=== PATIENT | female | born 1965 | race Caucasian/White ===

== ENCOUNTER 2019-11-01 02:33 | Inpatient (IN) ==
[2019-11-01] MEDS ORDERED: IPRATROPIUM/ALBUTEROL 3 ML AMPUL.NEB NEB ONE ×2 (02:45→04:34)
[2019-11-01] MEDS ORDERED: cefTRIAXone 1 GM VIAL IV ONE (03:12)
[2019-11-01] MEDS ORDERED: LEVOFLOXACIN 750 MG/150 ML BAG IV ONE (03:12)
[2019-11-01 04:24] LABS: Basophils # (Auto) 0.04 K/mcL (0.00-0.30); Basophils % (Auto) 0.3 % (0.0-2.0); Eosinophils # (Auto) 0.13 K/mcL (0.00-0.70); Granulocytes % (Auto) 86.7 % (38.0-78.0); Hematocrit 35.6 % (34.1-44.9); Hemoglobin 11.4 g/dL (11.2-15.7); Lymphocytes # (Auto) 0.77 K/mcL (1.50-4.80); Lymphocytes % (Auto) 6.2 % (15.5-49.0); Mean Cell Volume 88.1 fL (80.0-100.0); Mean Platelet Volume 10.2 fL (7.4-10.4); Monocytes # (Auto) 0.72 K/mcL (0.10-0.90); Monocytes % (Auto) 5.8 % (1.0-12.0); Platelet Count 231 K/mcL (140-440); RBC 4.04 M/mcL (3.59-5.38); Red Cell Distribution Width 14.8 % (11.5-14.5); WBC 12.5 K/mcL (4.50-11.00)
[2019-11-01 04:46] LABS: ALT/SGPT 15 U/l (0-40); AST/SGOT 17 U/l (0-37); Albumin 3.7 gm/dL (3.2-5.2); Albumin/Globulin Ratio 1.1 (1.0-2.3); Alkaline Phosphatase 67 U/L (39-117); Bilirubin,Total 0.4 mg/dL (0.0-1.0); Blood Urea Nitrogen 15 mg/dl (6-20); Calcium 8.4 mg/dl (8.6-10.4); Carbon Dioxide 28 mmol/L (22-30); Chloride 99 mmol/L (96-108); Globulin 3.4 gm/dL (2.2-3.7); Glomerular Filtration Rate 84; Glucose 150 mg/dL (70-105)
--- NOTE | 2019-11-01 07:30 | Emergency Department Note ---
SOB HPI - General Chief Complaint: Shortness of Breath/Dyspnea Stated Complaint: wheezing shortness of breathe Time Seen by Provider: 11/01/19 03:11 Mode of arrival: ambulatory - History of Present Illness This patient has felt short of breath for the last week much worse at night. She has had some cough and does have a history of asthma. She initially was wheezing pretty heavily. - Related Data Home Medications Medication Instructions Recorded Confirmed metFORMIN [Glucophage] 500 mg PO [facility] 01/25/17 08/31/19 Aspirin [Davon Chewable Aspirin] 81 mg PO DAILY 12/14/17 08/31/19 Atorvastatin [Lipitor] 80 mg PO HS 12/14/17 08/31/19 Escitalopram [Lexapro] 10 mg PO DAILY 12/14/17 08/31/19 Metoprolol Tartrate [Lopressor] 25 mg PO BID 12/14/17 08/31/19 Omeprazole [PriLOSEC] 20 mg PO HS 12/14/17 08/31/19 losartan 100 1 tab PO QDAY 01/28/18 08/31/19 mg-hydrochlorothiazide 25 mg tablet cholecalciferol (vitamin D3) 50,000 unit PO .COMPLEX 06/17/18 08/31/19 50,000 unit capsule ticagrelor 60 mg tablet 60 mg PO BID 05/05/19 08/31/19 CPAP machine #1 ea 08/31/19 08/31/19 aripiprazole 2 mg tablet 2 mg PO QDAY 08/31/19 08/31/19 Previous Rx's Medication Instructions Recorded Furosemide [Lasix] 20 mg PO QDAY #30 tab 12/21/17 Potassium Chloride 10 meq PO BID #60 capsule.er 12/21/17 Cyclobenzaprine [Flexeril] 10 mg PO TID PRN #20 tab 10/07/18 albuterol sulfate 90 mcg/actuation 2 puff INHALATION Q6H PRN #18 g 07/22/19 aerosol inhaler HYDROcodone/APAP 5/325MG [[place] 1 tab PO Q6HP PRN #10 tab 08/01/19 5-325Mg] Ondansetron [Zofran ODT] 4 mg SL Q4-6HP PRN #10 tab 08/01/19 Allergies Allergy/AdvReac Type Severity Reaction Status Date / Time lisinopril Allergy Unknown Critical Verified 08/31/19 15:33 Review of Systems All systems ED: reviewed and negative except as stated. Past Medical History - Past Medical History [facility] Narrative: Medical History (Last Reviewed 08/31/19 @ 16:03 by IVETTE Farr) History of ST elevation myocardial infarction (STEMI) (Chronic) MONICA (obstructive sleep apnea) (Chronic) COPD (chronic obstructive pulmonary disease) (Chronic) Weight loss (Chronic) Acute sinusitis (Chronic) History of night sweats (Chronic) ST elevation (STEMI) myocardial infarction (Chronic) Vitamin D deficiency (Chronic) Gallstone (Chronic) Fatigue (Chronic) Irregular heart beat (Chronic) Chest pain (Chronic) Acute ST elevation myocardial infarction (Chronic) Systolic and diastolic hypertension (Chronic) Rhinosinusitis (Chronic) Acute coronary syndrome (Chronic) Smell or taste sensation disturbance (Chronic) Morbid obesity (Chronic) Cardiac murmur (Chronic) Pedal edema (Chronic) 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) Hypertension (Chronic) Bronchitis (Chronic) Myocardial infarction (Chronic) Anxiety (Chronic) Bronchospasm (Chronic) COPD exacerbation (Chronic) Abnormal blood-gas level (Chronic) Sleep apnea (Chronic) SOB (shortness of breath) (Chronic) Past Surgical History (Last Reviewed 08/31/19 @ 16:03 by IVETTE Farr) History of bilateral tubal ligation (Chronic ~1994) History of percutaneous coronary intervention (Chronic) History of (Chronic) History of facial surgery (Chronic ~1994) Family History (Last Reviewed 08/31/19 @ 16:03 by IVETTE Farr) Family/Other Cancer Grandmother Heart disease Grandfather Heart disease Son Hypertension Medical history: Reports: asthma, CAD (coronary artery disease), CHF, DM, hypertension, myocardial infarction Surgical history ED: Reports: angioplasty/stent - Social History smoking status: Former smoker Alcohol use: Reports: None Drug use: Reports: none Physical Exam Limitations: no limitations General appearance: alert Head: atraumatic Eye: Present: normal appearance ENT: Present: normal exam Neck: Present: normal inspection Chest: Present: normal inspection Respiratory: Present: rales/crackles, wheezes Cardiovascular: Present: regular rate, normal rhythm, normal heart sounds Abdominal: Present: soft. Absent: distention, tenderness Neurological: Present: alert Psychiatric: Present: normal affect Skin: Present: warm, dry Course Vital Signs Temperature 100.3 F H 11/01/19 02:34 Pulse Rate 102 H 11/01/19 02:34 Respiratory Rate 24 H 11/01/19 02:34 Pulse Oximetry (%) 87 L 11/01/19 02:34 Temperature 100.3 F H 11/01/19 02:34 Pulse Rate 96 H 11/01/19 06:28 Respiratory Rate 24 H 11/01/19 02:34 Blood Pressure 126/65 11/01/19 06:16 Pulse Oximetry (%) 91 11/01/19 06:28 Shortness of Breath/Dyspnea - [facility] Narrative Medical decision making narrative: Patient's chest x-ray was read as showing heart failure with superimposed right lower lobe pneumonia. Patient feels sick enough to want to be admitted to the hospital. I have treated her with Levaquin and Rocephin. Have not started diuresis yet. Have spoken with the hospitalist Dr. Curry and he will admit her observation. - Lab Data Lab results reviewed: Yes I reviewed the patient's lab results. Result diagrams: 11/01/19 03:24 11/01/19 03:24 Lab Results 11/01/19 11/01/19 11/01/19 Range/Units 03:24 03:24 03:24 WBC 12.5 H (4.50-11.00) K/mcL RBC 4.04 (3.59-5.38) M/mcL Hgb 11.4 (11.2-15.7) g/dL Hct 35.6 (34.1-44.9) % MCV 88.1 (80.0-100.0) fL MCH 28.2 (26.0-34.0) pg MCHC 32.0 (31.0-36.0) g/dL RDW 14.8 H (11.5-14.5) % Plt Count 231 (140-440) K/mcL MPV 10.2 (7.4-10.4) fL Gran % 86.7 H (38.0-78.0) % Lymph % (Auto) 6.2 L (15.5-49.0) % [place] % (Auto) 5.8 (1.0-12.0) % Eos % (Auto) 1.0 (0.0-7.0) % Baso % (Auto) 0.3 (0.0-2.0) % Gran # 10.79 H (1.80-8.00) K/mcL Lymph # (Auto) 0.77 L (1.50-4.80) K/mcL [place] # (Auto) 0.72 (0.10-0.90) K/mcL Eos # (Auto) 0.13 (0.00-0.70) K/mcL Baso # (Auto) 0.04 (0.00-0.30) K/mcL VBG Lactic Acid 1.2 (0.5-2.0) mmol/L Sodium 139 (133-145) mmol/L Potassium 3.4 (3.3-5.1) mmol/L Chloride 99 (96-108) mmol/L Carbon Dioxide 28 (22-30) mmol/L Anion Gap 12.0 (8-16) BUN 15 (6-20) mg/dl Creatinine 0.8 (0.6-1.1) mg/dl GFR Calculation 84 Glucose 150 H (70-105) mg/dL Calcium 8.4 L (8.6-10.4) mg/dl Total Bilirubin 0.4 (0.0-1.0) mg/dL AST 17 (0-37) U/l ALT 15 (0-40) U/l Alkaline Phosphatase 67 (39-117) U/L Troponin T (0-0.03) ng/ml NT-Pro-B Natriuret Pep 1733.0 H (0-125) pg/ml Total Protein 7.1 (5.9-8.4) gm/dL Albumin 3.7 (3.2-5.2) gm/dL Globulin 3.4 (2.2-3.7) gm/dL Albumin/Globulin Ratio 1.1 (1.0-2.3) 11/01/19 Range/Units 03:24 WBC (4.50-11.00) K/mcL RBC (3.59-5.38) M/mcL Hgb (11.2-15.7) g/dL Hct (34.1-44.9) % MCV (80.0-100.0) fL MCH (26.0-34.0) pg MCHC (31.0-36.0) g/dL RDW (11.5-14.5) % Plt Count (140-440) K/mcL MPV (7.4-10.4) fL Gran % (38.0-78.0) % Lymph % (Auto) (15.5-49.0) % [place] % (Auto) (1.0-12.0) % Eos % (Auto) (0.0-7.0) % Baso % (Auto) (0.0-2.0) % Gran # (1.80-8.00) K/mcL Lymph # (Auto) (1.50-4.80) K/mcL [place] # (Auto) (0.10-0.90) K/mcL Eos # (Auto) (0.00-0.70) K/mcL Baso # (Auto) (0.00-0.30) K/mcL VBG Lactic Acid (0.5-2.0) mmol/L Sodium (133-145) mmol/L Potassium (3.3-5.1) mmol/L Chloride (96-108) mmol/L Carbon Dioxide (22-30) mmol/L Anion Gap (8-16) BUN (6-20) mg/dl Creatinine (0.6-1.1) mg/dl GFR Calculation Glucose (70-105) mg/dL Calcium (8.6-10.4) mg/dl Total Bilirubin (0.0-1.0) mg/dL AST (0-37) U/l ALT (0-40) U/l Alkaline Phosphatase (39-117) U/L Troponin T < 0.01 (0-0.03) ng/ml NT-Pro-B Natriuret Pep (0-125) pg/ml Total Protein (5.9-8.4) gm/dL Albumin (3.2-5.2) gm/dL Globulin (2.2-3.7) gm/dL Albumin/Globulin Ratio (1.0-2.3) - Radiology Data Radiology results reviewed: Yes I reviewed the patient's radiology results. Disposition Pt seen by SENIOR TECHNICAL ARCHITECT/PA only: No Clinical Impression: Community acquired pneumonia, Congestive heart failure Disposition: Xfer As Outpt/Obs ([facility]) Condition: Good Referrals: Stolte,Iza R, ANIMAL CARE SERVICE WORKER [Primary Care Provider] - Time of Disposition: 08:51
--- NOTE | 2019-11-01 07:41 | XRay Report ---
CLINICAL INFORMATION: shortnessof breathe COMPARISON: 08/01/2019 FINDINGS: Moderate cardiomegaly is unchanged. Mediastinum is unremarkable. Pulmonary vessels are mildly distended and there is mild interstitial edema throughout both lungs. Moderate patchy right lower lobe infiltrate has developed. There are small bilateral pleural effusions. IMPRESSION: Moderate CHF Moderate right lower lobe infiltrate - likely superimposed pneumonia Interpreted and Authenticated by: Alejo Gamboa 11/01/19
--- NOTE | 2019-11-01 08:53 | Internal Med History&Physical ---
Medical - H&P: [facility] Patient information: Note initiated : 11/01/19 at 8:52 am Service Date, if different from initiated Date: [] Patient: Delmy Emery a 54 y/o F admitted on for wheezing shortness of breathe. Chief Complaint: [] Chief complaint: Shortness of breath, weight gain History of present illness: Ms. Emery is a 54 year old F morbidly obese with a known history of diabetes/hypertension who presents to ER with increasing weight gain/shortness of breath over the last few days. Patient has been taking 6-8 ibuprofen for degenerative joint disease. She also endorses a lack of appetite and lack of sleep. Her dyspnea is progressed from maximum exertion to dyspnea at rest. Dyspnea exacerbated by laying down. She denies [id number] medications or sick contacts. She presents to the ER with above symptoms. Notably patient has a history of CHF and follows up with Dr. rubi [place] cardiology. She has an echocardiogram done middle of 2018 and was following up with [place] Dr. Osborn. Initial work-up was consistent with CHF exacerbation/basilar pneumonia. Patient was started on antibiotic coverage subsequently hospitalist service was consulted At the time of evaluation patient is accompanied with her son. She was able to answer most the question and endorsed to history as above. She denies associated fever, diarrhea, abdominal pain, headache, photophobia. She denies productive sputum. Review of systems A 10 point review of system was performed and is negative except for discussed above Medical - H&P: PMH Medical history: History of ST elevation myocardial infarction (STEMI) (Chronic) MONICA (obstructive sleep apnea) (Chronic) COPD (chronic obstructive pulmonary disease) (Chronic) Weight loss (Chronic) Acute sinusitis (Chronic) History of night sweats (Chronic) ST elevation (STEMI) myocardial infarction (Chronic) Vitamin D deficiency (Chronic) Gallstone (Chronic) Fatigue (Chronic) Irregular heart beat (Chronic) Chest pain (Chronic) consistent with unstable angina Acute ST elevation myocardial infarction (Chronic) Systolic and diastolic hypertension (Chronic) Rhinosinusitis (Chronic) Acute coronary syndrome (Chronic) NSTEMI Smell or taste sensation disturbance (Chronic) Morbid obesity (Chronic) Cardiac murmur (Chronic) Pedal edema (Chronic) 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) Hypertension (Chronic) Bronchitis (Chronic) bilateral Myocardial infarction (Chronic) Anxiety (Chronic) Bronchospasm (Chronic) COPD exacerbation (Chronic) Abnormal blood-gas level (Chronic) Sleep apnea (Chronic) SOB (shortness of breath) (Chronic) Surgical History History of bilateral tubal ligation (Chronic ~1994) History of percutaneous coronary intervention (Chronic) 2 stents placed History of (Chronic) 1994; 1992; 1985 History of facial surgery (Chronic ~1994) 1994 facial cyst removed with reconstruction Family History Family/Other Cancer Uncle Grandmother Heart disease Grandfather Heart disease Son Hypertension Social History marital status: single occupational status: employed physical activity: swimming frequency: daily smoking status: Former smoker quit date: 10/14/04 pack-years: 33 alcohol intake frequency: holiday/special occasion only substance use type: does not use Medical - H&P: Meds Home Medications Medication Instructions Recorded Confirmed Type Aspirin [Davon Chewable Aspirin] 81 mg PO DAILY 12/14/17 11/01/19 History Atorvastatin [Lipitor] 80 mg PO HS 12/14/17 11/01/19 History Metoprolol Tartrate [Lopressor] 25 mg PO BID 12/14/17 11/01/19 History Omeprazole [PriLOSEC] 20 mg PO HS 12/14/17 11/01/19 History Potassium Chloride 10 meq PO BID #60 capsule.er 12/21/17 11/01/19 Rx cholecalciferol (vitamin D3) 50,000 unit PO WEEKLY 06/17/18 11/01/19 History 50,000 unit capsule CPAP machine 1 each .ROUTE .MEDSUPPLY #1 ea 08/31/19 11/01/19 History aripiprazole 2 mg tablet 2 mg PO QDAY 08/31/19 11/01/19 History Furosemide [Lasix] 40 mg PO BID 11/01/19 11/01/19 History Losartan [Cozaar] 25 mg PO DAILY 11/01/19 11/01/19 History Ticagrelor [Brilinta] 90 mg PO BID 11/01/19 11/01/19 History metFORMIN [Glucophage] 500 mg PO DAILY 11/01/19 11/01/19 History Allergies Allergy/AdvReac Type Severity Reaction Status Date / Time clopidogrel [From Plavix] Allergy Mild Rash Verified 11/01/19 15:31 lisinopril AdvReac Mild Cough Verified 11/01/19 15:31 Medical - H&P: Exam - Constitutional Vitals: Temp Pulse Resp BP Pulse Ox 100.3 F H 96 H 24 H 126/65 91 11/01/19 02:34 11/01/19 06:28 11/01/19 02:34 11/01/19 06:16 11/01/19 06:28 General appearance: morbidly obese Exam: Head normocephalic Oral cavity dry No ear nose discharge Eye movement symmetrical Neck lymphadenopathy S1-S2 regular rhythm ESM grade 1 Diminished breath sounds bases Pendulous distended abdomen Lower extremity pitting edema from knee to the ankle No joint swelling erythema Skin no suspicious lesion Psych alert cooperative Neuro nonfocal Medical - H&P: Reslt - Labs CBC & Chem 7: 11/02/19 04:49 11/02/19 04:49 Labs: Short CBC 11/01/19 Range/Units 03:24 WBC 12.5 H (4.50-11.00) K/mcL Hgb 11.4 (11.2-15.7) g/dL Hct 35.6 (34.1-44.9) % Plt Count 231 (140-440) K/mcL BMP 11/01/19 03:24 Sodium 139 Potassium 3.4 Chloride 99 Carbon Dioxide 28 BUN 15 Creatinine 0.8 Glucose 150 H Calcium 8.4 L Cardiac Enzymes 11/01/19 Range/Units 03:24 Troponin T < 0.01 (0-0.03) ng/ml Liver Function 11/01/19 Range/Units 03:24 Total Bilirubin 0.4 (0.0-1.0) mg/dL AST 17 (0-37) U/l ALT 15 (0-40) U/l Alkaline Phosphatase 67 (39-117) U/L Albumin 3.7 (3.2-5.2) gm/dL Medical - H&P: A/P (1) Heart failure with acute decompensation, type unknown Current visit: Yes Status: Acute * Acute decompensated heart failure-type unknown. Await echocardiogram from [place]. Recheck echocardiogram/diuresis/repeat chest imaging. PT OT. Start beta-ivy/MIGUEL inhibitor. * Basilar pneumonia continue antibiotic coverage. Community-acquired versus aspiration * Dyspnea secondary above continue diuresis/pulmonary toilet/supplemental oxygen * DM type II continue basal prandial insulin * Obstructive sleep apnea * Hyperlipidemia continue statin * CAD continue Brilinta/statin/aspirin * Full code * Prophylaxis heparin Plan * Start antibiotic coverage * Diuresis * Echocardiogram * CHF management based on echo finding * Pre-existing well condition management on home meds * PT OT/nutrition support * Discharge planning
[2019-11-01] MEDS ORDERED: ATORVASTATIN 40 MG TABLET PO ONE (10:15)
[2019-11-01] MEDS ORDERED: metFORMIN 500 MG TAB.XL.24H PO ONE (10:22)
[2019-11-01] MEDS ORDERED: OMEPRAZOLE 20 MG CAPSULE PO ONE (10:24)
[2019-11-01] MEDS ORDERED: FUROSEMIDE 40 MG TABLET PO ONE (10:25)
[2019-11-01] MEDS ORDERED: ASPIRIN 81 MG TAB.CHEW CHEWED ONE (10:26)
[2019-11-01] MEDS ORDERED: POTASSIUM CHLORIDE 10 MEQ TABLET PO ONE (10:26)
[2019-11-01] MEDS ORDERED: METOPROLOL SUCCINATE 25 MG TAB.XL.24H PO ONE (10:27)
[2019-11-01] MEDS ORDERED: LOSARTAN 25 MG TABLET PO ONE (10:27)
[2019-11-01] MEDS ORDERED: ESCITALOPRAM 20 MG TABLET PO SCH (10:39)
[2019-11-01] MEDS ORDERED: ESCITALOPRAM 20 MG TABLET PO ONE (11:19)
[2019-11-01] MEDS ORDERED: ONDANSETRON 4 MG/2 ML VIAL IV PRN (13:51)
[2019-11-01] MEDS ORDERED: ONDANSETRON 4 MG ODT TABLET SL PRN (13:51)
[2019-11-01] MEDS ORDERED: cefTRIAXone 2 GM in DEXTROSE 5% IN WATER 50 ML IV SCH (13:51)
[2019-11-01] MEDS ORDERED: DEXTROSE 31 GM ORAL.SUSP PO PRN (13:51)
[2019-11-01] MEDS ORDERED: DEXTROSE 50% 50 ML VIAL IV PRN (13:51)
[2019-11-01] MEDS ORDERED: POTASSIUM CHLORIDE 20 MEQ PACKET PO PRN (13:51)
[2019-11-01] MEDS ORDERED: MELATONIN 3 MG TABLET PO PRN (13:51)
[2019-11-01] MEDS ORDERED: POLYETHYLENE GLYCOL 3350 17 GM PACKET PO PRN (13:51)
[2019-11-01] MEDS ORDERED: ACETAMINOPHEN 650 MG/65 ML BOTTLE IV PRN (13:51)
[2019-11-01] MEDS ORDERED: MAGNESIUM SULFATE 2 GM/50 ML BAG IV PRN (13:51)
[2019-11-01] MEDS ORDERED: ACETAMINOPHEN 325 MG TABLET PO PRN (13:51)
[2019-11-01] MEDS: INSULIN LISPRO 1 UNIT/0.01 ML UNIT SQ SCH ×3 (13:51→21:08)
[2019-11-01] MEDS ORDERED: BISACODYL 10 MG SUPP.RECT PR PRN (13:51)
[2019-11-01] MEDS ORDERED: LEVOFLOXACIN 750 MG/150 ML BAG IV SCH (13:51)
[2019-11-01] MEDS: DOCUSATE SODIUM 100 MG CAPSULE PO SCH ×2 (13:57→21:08)
[2019-11-01] MEDS: IPRATROPIUM/ALBUTEROL 3 ML AMPUL.NEB NEB SCH ×3 (14:19→19:10)
[2019-11-01] MEDS: FUROSEMIDE 40 MG/4 ML VIAL IV SCH (15:51)
[2019-11-01] MEDS: MULTIVIT,THER IRON,CA,FA & MIN 1 TABLET PO SCH (15:52)
[2019-11-01] MEDS: sitaGLIPtin 100 MG TABLET PO SCH (15:52)
[2019-11-01] MEDS: HEPARIN 5,000 UNIT/ML VIAL SQ SCH ×2 (15:52→21:08)
[2019-11-01] MEDS: THIAMINE 100 MG TABLET PO SCH (15:52)
[2019-11-01] MEDS: 0.9 % SODIUM CHLORIDE 10 ML SYRINGE IV SCH ×2 (15:53→21:08)
[2019-11-01] MEDS: BUDESONIDE 0.5 MG/2 ML AMPUL.NEB NEB SCH ×2 (15:56→19:10)
[2019-11-01] MEDS: SENNOSIDES/DOCUSATE SODIUM 1 TAB TABLET PO SCH (21:08)
[2019-11-02] MEDS: IPRATROPIUM/ALBUTEROL 3 ML AMPUL.NEB NEB SCH ×7 (00:34→23:05)
[2019-11-02] MEDS: 0.9 % SODIUM CHLORIDE 10 ML SYRINGE IV SCH ×3 (06:00→20:54)
[2019-11-02 06:58] LABS: Hematocrit 33.2 % (34.1-44.9); Hemoglobin 10.7 g/dL (11.2-15.7); Mean Cell Volume 87.8 fL (80.0-100.0); Mean Corpuscular HGB Conc 32.2 g/dL (31.0-36.0); Mean Platelet Volume 10.3 fL (7.4-10.4); Platelet Count 215 K/mcL (140-440); RBC 3.78 M/mcL (3.59-5.38); Red Cell Distribution Width 15.2 % (11.5-14.5)
[2019-11-02] MEDS: BUDESONIDE 0.5 MG/2 ML AMPUL.NEB NEB SCH ×2 (07:22→19:00)
[2019-11-02] MEDS: INSULIN LISPRO 1 UNIT/0.01 ML UNIT SQ SCH ×4 (07:30→20:53)
[2019-11-02 07:34] LABS: ALT/SGPT 12 U/l (0-40); AST/SGOT 14 U/l (0-37); Albumin 3.4 gm/dL (3.2-5.2); Albumin/Globulin Ratio 1.1 (1.0-2.3); Alkaline Phosphatase 62 U/L (39-117); Bilirubin,Direct < 0.2 mg/dL (0.0-0.3); Bilirubin,Total 0.8 mg/dL (0.0-1.0); Blood Urea Nitrogen 15 mg/dl (6-20); Carbon Dioxide 27 mmol/L (22-30); Chloride 99 mmol/L (96-108); Globulin 3.2 gm/dL (2.2-3.7); Glomerular Filtration Rate 84; Glucose 132 mg/dL (70-105); Lactate Dehydrogenase 208 U/L (94-250); Phosphorous 3.9 mg/dL (2.7-4.5); Triglycerides 62 mg/dl (<150); Uric Acid 5.5 mg/dL (2.5-8.0)
[2019-11-02 08:12] LABS: Band Neutrophils % 4 % (0-10); Basophils % (Manual) 1 % (0-2); Eosinophils % (Manual) 2 % (0-7); Lymphocytes % 9 % (15-49); Monocytes % (Manual) 5 % (1-12); Platelet Estimate NORMAL (NORMAL); RBC Morphology NORMAL (NORMAL); Reactive Lymphocytes 1 % (0-2); Segmented Neutrophils % 78 % (38-78)
[2019-11-02] MEDS ORDERED: POTASSIUM CHLORIDE 20 MEQ TABLET PO ONE (08:52)
[2019-11-02] MEDS ORDERED: ESCITALOPRAM 20 MG TABLET PO SCH (09:00)
[2019-11-02] MEDS: Ticagrelor [Brilinta] 90 mg Tab PO SCH ×2 (09:00→20:54)
[2019-11-02] MEDS: LEVOFLOXACIN 750 MG/150 ML BAG IV SCH (09:22)
[2019-11-02] MEDS: cefTRIAXone 2 GM in DEXTROSE 5% IN WATER 50 ML IV SCH (09:22)
[2019-11-02] MEDS: DOCUSATE SODIUM 100 MG CAPSULE PO SCH ×2 (09:23→20:53)
[2019-11-02] MEDS: MULTIVIT,THER IRON,CA,FA & MIN 1 TABLET PO SCH (09:23)
[2019-11-02] MEDS: HEPARIN 5,000 UNIT/ML VIAL SQ SCH ×2 (09:23→20:53)
[2019-11-02] MEDS: FUROSEMIDE 40 MG/4 ML VIAL IV SCH ×2 (09:23→17:48)
[2019-11-02] MEDS: THIAMINE 100 MG TABLET PO SCH (09:23)
[2019-11-02] MEDS ORDERED: CPAP MACHINE SCH (09:30)
[2019-11-02] MEDS: sitaGLIPtin 100 MG TABLET PO SCH (09:32)
[2019-11-02] MEDS ORDERED: metFORMIN 500 MG TAB.XL.24H PO ONE (10:22)
[2019-11-02] MEDS ORDERED: OMEPRAZOLE 20 MG CAPSULE PO ONE (10:24)
--- NOTE | 2019-11-02 10:46 | Internal Med Progress Note ---
Medical - PN: Subj Patient information: Note initiated : 11/02/19 at 10:42 am Service Date, if different from initiated Date: [] Patient: Delmy Emery a 54 y/o F admitted on 11/01/19 for wheezing shortness of breathe. Chief Complaint: [] Interval history: Ms. Emery is a 54 year old F morbidly obese with a known history of diabetes/hypertension who presents to ER with increasing weight gain/shortness of breath over the last few days. Patient has been taking 6-8 ibuprofen for degenerative joint disease. She also endorses a lack of appetite and lack of sleep. Her dyspnea is progressed from maximum exertion to dyspnea at rest. Dyspnea exacerbated by laying down. She denies grxm-zlm-obhrsel medications or sick contacts. She presents to the ER with above symptoms. Notably patient has a history of CHF and follows up with Dr. rubi [place] cardiology. She has an echocardiogram done middle of 2018 and was following up with [place] Dr. Osborn. Initial work-up was consistent with CHF exacerbation/basilar pneumonia. Patient was started on antibiotic coverage subsequently hospitalist service was consulted At the time of evaluation patient is accompanied with her son. She was able to answer most the question and endorsed to history as above. She denies associated fever, diarrhea, abdominal pain, headache, photophobia. She denies productive sputum. 11/02-patient doing well. No overnight events. No concerns per staff. No fever chills nausea vomiting. Diuresing well. On room air. No telemetry events. T-max 100.3. Continue PT OT/nutrition support - Constitutional Vitals: Vital Signs Temp Pulse Resp BP Pulse Ox 98.0 F 80 16 144/75 95 11/02/19 08:37 11/02/19 07:29 11/02/19 07:29 11/02/19 08:37 11/02/19 08:37 Period Temp Pulse Resp BP Sys/Blackwell Pulse Ox Last 24 Hr 97.0 F-98.4 F 70-94 14-26 103-147/38-79 91-100 Intake and Output 11/01/19 11/02/19 11/02/19 21:59 05:59 13:59 Intake Total 360 Output Total 1900 850 Balance -1900 -490 Weight 441 lb Intake & Output: Intake & Output 11/01/19 11/02/19 11/02/19 21:59 05:59 13:59 Intake Total 360 Output Total 1900 850 Balance -1900 -490 Weight 441 lb Intake: Oral 360 Output: Urine Catheter Amount 400 Void Amount 1500 850 # of times incontinent of urine 0 Other: Meal Breakfast Percent of Meal Consumed 100% Feeding Ability Independent Urine Appearance Clear Clear Urine Color Pale Pale Urine Odor Strong # Voids 1 1 # Bowel Movements 1 General appearance: no acute distress Exam: Alert oriented Nonlabored breathing Nondistended abdomen Improved lymphedema No telemetry events Medical - PN: Obj Da - Labs CBC & Chem 7: 11/02/19 04:49 11/02/19 04:49 Labs: Abnormal Lab Results 11/02/19 11/02/19 11/01/19 04:49 04:49 03:24 WBC Hgb 10.7 L Hct 33.2 L RDW 15.2 H Gran % Lymph % (Auto) Gran # Lymph # (Auto) Lymphocytes % 9 L Glucose 132 H 150 H Calcium 8.4 L NT-Pro-B Natriuret Pep 1733.0 H 11/01/19 03:24 WBC 12.5 H Hgb Hct RDW 14.8 H Gran % 86.7 H Lymph % (Auto) 6.2 L Gran # 10.79 H Lymph # (Auto) 0.77 L Lymphocytes % Glucose Calcium NT-Pro-B Natriuret Pep Meds: Medications Acetaminophen (Tylenol) 650 mg PO Q4-6HP PRN; Protocol PRN Reason: Per Pain Protocol/Fever > 101 Albuterol/Ipratropium (Duoneb) 3 ml NEB Q4HRT [facility] Last Admin: 11/02/19 07:22 Dose: 3 ml Documented by: Aspirin (Aspirin) 81 mg PO DAILY [facility] Atorvastatin Calcium (Lipitor) 80 mg PO HS [facility] Bisacodyl (Dulcolax) 10 mg MI Q2-3DAYS PRN PRN Reason: Constipation Budesonide (Pulmicort) 0.5 mg NEB Q12 [facility] Last Admin: 11/02/19 07:22 Dose: 0.5 mg Documented by: Dextrose (Dextrose 50%) 0 ml IV UD PRN PRN Reason: Hypoglycemia Diagnostic Test (Pha) (Accu-Chek) 1 each FS ACHS [facility] Last Admin: 11/02/19 07:30 Dose: 1 each Documented by: Docusate Sodium (Colace) 100 mg PO BID [facility] Last Admin: 11/02/19 09:23 Dose: Not Given Documented by: Furosemide (Lasix) 40 mg IV BIDD [facility] Last Admin: 11/02/19 09:23 Dose: 40 mg Documented by: Glucose (Insta-Glucose) 15 gm PO PRN PRN PRN Reason: Hypoglycemia Heparin Sodium (Porcine) (Heparin) 5,000 unit SQ Q12 [facility] Last Admin: 11/02/19 09:23 Dose: 5,000 unit Documented by: Acetaminophen (Ofirmev) 650 mg in 65 mls @ 130 mls/hr IV Q6HP PRN; Protocol PRN Reason: Per Pain Protocol/Fever > 101 Magnesium Sulfate (Magnesium Sulfate) 2 gm in 50 mls @ 50 mls/hr IV UD PRN PRN Reason: MG = or < 1.7 Levofloxacin (Levaquin) 750 mg in 150 mls @ 100 mls/hr IV Q24H [facility]; Protocol Last Admin: 11/02/19 09:22 Dose: 100 mls/hr Documented by: Ceftriaxone Sodium 2 gm/ (Dextrose) 50 mls @ 100 mls/hr IV Q24H [facility]; Protocol Last Admin: 11/02/19 09:22 Dose: 100 mls/hr Documented by: Insulin Human Lispro (Humalog) 0 unit SQ ACHS [facility]; Protocol Last Admin: 11/02/19 07:30 Dose: Not Given Documented by: Iron Carb/Multivit/[place]/Folic Acid (Multivitamin W/Minerals) 1 tab PO DAILY [facility] Last Admin: 11/02/19 09:23 Dose: 1 tab Documented by: Losartan Potassium (Cozaar) 25 mg PO DAILY [facility] Melatonin (Melatonin 3mg Tablet) 3 mg PO HSP PRN PRN Reason: Insomnia [facility]) [facility] Metoprolol Tartrate (Lopressor) 25 mg PO BID [facility] Omeprazole (Prilosec) 20 mg PO HS [facility] Ondansetron HCl (Zofran Odt) 4 mg SL Q4-6HP PRN; Protocol PRN Reason: Nausea And Vomiting Ondansetron HCl (Zofran) 4 mg IV Q4-6HP PRN; Protocol PRN Reason: Nausea And Vomiting Aripiprazole [ (Abilify] 2 Mg Tab) 1 dose PO QDAY [facility] Ticagrelor [Brilinta (] 90 Mg Tab) 1 dose PO BID [facility] Polyethylene Glycol (Miralax) 17 gm PO DAILYP PRN PRN Reason: Constipation Potassium Chloride (Klor-Con) 40 meq PO DAILYP PRN PRN Reason: K+ < 3.5 Last Admin: 11/01/19 17:19 Dose: 40 meq Documented by: Potassium Chloride (Kdur) 10 meq PO BIDCC [facility] Senna/Docusate Sodium (Senna Plus Tablet) 1 tab PO HS [facility] Last Admin: 11/01/19 21:08 Dose: Not Given Documented by: Sitagliptin Phosphate (Januvia) 100 mg PO DAILY [facility] Last Admin: 11/02/19 09:32 Dose: 100 mg Documented by: Sodium Chloride (Saline Flush) 10 ml IV Q8 [facility] Last Admin: 11/02/19 06:00 Dose: 10 ml Documented by: Thiamine HCl (Vitamin B1) 100 mg PO DAILY [facility] Last Admin: 11/02/19 09:23 Dose: 100 mg Documented by: Medical - PN: A/P - Time Spent With Patient Total time spent is greater than 50% in coordination of care (as documented) at patient's floor/unit and/or counseling patient: 25 - 35 minutes (1) Heart failure with acute decompensation, type unknown Status: Acute Assessment and plan: * Acute decompensated heart failure-diastolic from echo 2019. Await repeat echo. Continue diuresis. Continue beta-ivy/ARB. * History of CAD continue Brilinta/aspirin/statin/beta-ivy * Basilar pneumonia continue Levaquin for additional 6 days. Community-acquired versus aspiration * Dyspnea secondary above continue diuresis/pulmonary toilet/supplemental oxygen * DM type II continue CC diet/sliding scale insulin/metformin/sitagliptin, blood sugars at goal * Obstructive sleep apnea start home CPAP * Hyperlipidemia continue statin * Full code * Prophylaxis heparin Plan * Continue antibiotic coverage * Continue diuresis * Await echocardiogram * Prior medical condition management and home medications * PT OT/nutrition support * Discharge planning Current Visit: Yes Medical - PN: Qual - VTE Deep Vein Thrombosis/Pulmonary Embolism Present on Admission: No
[2019-11-02] MEDS: LOSARTAN 25 MG TABLET PO SCH (11:13)
[2019-11-02] MEDS: POTASSIUM CHLORIDE 10 MEQ TABLET PO SCH ×2 (11:13→17:48)
[2019-11-02] MEDS: metFORMIN 500 MG TABLET PO SCH (11:13)
[2019-11-02] MEDS: METOPROLOL TARTRATE 25 MG TABLET PO SCH ×2 (11:13→20:54)
[2019-11-02] MEDS ORDERED: ESCITALOPRAM 20 MG TABLET PO ONE (11:16)
[2019-11-02] MEDS: SENNOSIDES/DOCUSATE SODIUM 1 TAB TABLET PO SCH (20:54)
[2019-11-02] MEDS ORDERED: ATORVASTATIN 40 MG TABLET PO SCH (21:00)
[2019-11-02] MEDS ORDERED: OMEPRAZOLE 20 MG CAPSULE PO SCH (21:00)
[2019-11-03] MEDS: IPRATROPIUM/ALBUTEROL 3 ML AMPUL.NEB NEB SCH ×3 (03:51→11:26)
[2019-11-03] MEDS: 0.9 % SODIUM CHLORIDE 10 ML SYRINGE IV SCH (05:28)
[2019-11-03 06:44] LABS: Hematocrit 33.6 % (34.1-44.9); Hemoglobin 10.8 g/dL (11.2-15.7); Mean Cell Volume 87.5 fL (80.0-100.0); Mean Corpuscular HGB Conc 32.1 g/dL (31.0-36.0); Mean Platelet Volume 10.2 fL (7.4-10.4); Platelet Count 238 K/mcL (140-440); RBC 3.84 M/mcL (3.59-5.38); WBC 9.7 K/mcL (4.50-11.00)
[2019-11-03 07:09] LABS: ALT/SGPT 12 U/l (0-40); AST/SGOT 15 U/l (0-37); Albumin 3.5 gm/dL (3.2-5.2); Albumin/Globulin Ratio 1.1 (1.0-2.3); Alkaline Phosphatase 62 U/L (39-117); Bilirubin,Direct < 0.2 mg/dL (0.0-0.3); Bilirubin,Total 0.7 mg/dL (0.0-1.0); Blood Urea Nitrogen 15 mg/dl (6-20); Calcium 9.3 mg/dl (8.6-10.4); Carbon Dioxide 29 mmol/L (22-30); Chloride 97 mmol/L (96-108); Globulin 3.2 gm/dL (2.2-3.7); Glomerular Filtration Rate 73; Glucose 116 mg/dL (70-105); Lactate Dehydrogenase 195 U/L (94-250); Phosphorous 4.3 mg/dL (2.7-4.5); Triglycerides 70 mg/dl (<150); Uric Acid 5.5 mg/dL (2.5-8.0)
[2019-11-03] MEDS: BUDESONIDE 0.5 MG/2 ML AMPUL.NEB NEB SCH (07:31)
[2019-11-03] MEDS: INSULIN LISPRO 1 UNIT/0.01 ML UNIT SQ SCH (07:33)
[2019-11-03] MEDS: METOPROLOL TARTRATE 25 MG TABLET PO SCH (08:30)
[2019-11-03] MEDS: metFORMIN 500 MG TABLET PO SCH (08:30)
[2019-11-03] MEDS: THIAMINE 100 MG TABLET PO SCH (08:30)
[2019-11-03] MEDS: sitaGLIPtin 100 MG TABLET PO SCH (08:30)
[2019-11-03] MEDS: MULTIVIT,THER IRON,CA,FA & MIN 1 TABLET PO SCH (08:30)
[2019-11-03] MEDS: FUROSEMIDE 40 MG/4 ML VIAL IV SCH (08:31)
[2019-11-03] MEDS: Ticagrelor [Brilinta] 90 mg Tab PO SCH (08:31)
[2019-11-03] MEDS: POTASSIUM CHLORIDE 10 MEQ TABLET PO SCH (08:31)
[2019-11-03] MEDS: HEPARIN 5,000 UNIT/ML VIAL SQ SCH (08:31)
[2019-11-03] MEDS: DOCUSATE SODIUM 100 MG CAPSULE PO SCH (08:31)
[2019-11-03] MEDS: LOSARTAN 25 MG TABLET PO SCH (08:31)
[2019-11-03] MEDS: cefTRIAXone 2 GM in DEXTROSE 5% IN WATER 50 ML IV SCH (08:31)
[2019-11-03] MEDS ORDERED: ASPIRIN 81 MG TAB.CHEW PO SCH (09:00)
[2019-11-03 09:16] LABS: Band Neutrophils % 1 % (0-10); Eosinophils % (Manual) 1 % (0-7); Lymphocytes % 20 % (15-49); Monocytes % (Manual) 9 % (1-12); Platelet Estimate NORMAL (NORMAL); Polychromasia FEW (NONE SEEN); RBC Morphology ABNORM (NORMAL); Segmented Neutrophils % 69 % (38-78)
--- NOTE | 2019-11-03 09:29 | Discharge Summary ---
Medical - DS: Prov Patient information: Note initiated : 11/03/19 at 9:26 am Service Date, if different from initiated Date: [] Patient: Delmy Emery 54 y/o F admitted on 11/01/19 for wheezing shortness of breathe. Chief Complaint: [] Date of admission: 11/01/19 13:50 Discharge date: 11/03/19 Primary care physician: Iza Jacobs Consults: 11/01/19 Consult to Physician [CONS] Stat Comment: Consulting Provider: Eran Mora Reason For Exam: Physician to Consult Medical - DS: Meds - Discharge Medications Prescriptions: Levofloxacin [Levaquin] 750 mg PO DAILY #5 tab Transmission Status: Pending to [facility] Active and Home Medications: Home Medications Aspirin [Davon Chewable Aspirin] 81 mg PO DAILY 12/14/17 [History Confirmed 11/01/19 Last Taken 11/01/19] Atorvastatin [Lipitor] 80 mg PO HS 12/14/17 [History Confirmed 11/01/19 Last Taken 11/01/19] Metoprolol Tartrate [Lopressor] 25 mg PO BID 12/14/17 [History Confirmed 11/01/19 Last Taken 11/01/19] Omeprazole [Prilosec] 20 mg PO HS 12/14/17 [History Confirmed 11/01/19 Last Taken 11/01/19] Potassium Chloride 10 meq PO BID #60 capsule.er 12/21/17 [Rx Confirmed 11/01/19 Last Taken 11/01/19] cholecalciferol (vitamin D3) 50,000 unit capsule 50,000 unit PO WEEKLY 06/17/18 [History Confirmed 11/01/19 Last Taken 10/28/19] CPAP machine 1 each .ROUTE .MEDSUPPLY #1 ea 08/31/19 [History Confirmed 11/01/19 Last Taken Unknown] aripiprazole 2 mg tablet 2 mg PO QDAY 08/31/19 [History Confirmed 11/01/19 Last Taken 10/31/19] Furosemide [Lasix] 40 mg PO BID 11/01/19 [History Confirmed 11/01/19 Last Taken 11/01/19] Losartan [Cozaar] 25 mg PO DAILY 11/01/19 [History Confirmed 11/01/19 Last Taken 11/01/19] Ticagrelor [Brilinta] 90 mg PO BID 11/01/19 [History Confirmed 11/01/19 Last Taken 10/31/19] metFORMIN [Glucophage] 500 mg PO DAILY 11/01/19 [History Confirmed 11/01/19 Last Taken 11/01/19] Levofloxacin [Levaquin] 750 mg PO DAILY #5 tab 11/03/19 [Rx Last Taken Unknown] Medical - DS: Hosp Hospital Course: Discharge diagnosis * Acute decompensated heart failure-diastolic from echo 2018 and repeat echo with preserved EF await repeat echo. Responded well to diuretics. Continue beta-ivy/ARB. * Basilar pneumonia clinically improved on antibiotic coverage. Continue Levaquin for additional 5 days. * Dyspnea secondary above resolved with aggressive diuresis/pulmonary toilet/supplemental oxygen * History of CAD continue Brilinta/aspirin/statin/beta-ivy * DM type II remained stable on CC diet/sliding scale insul in/metformin/sitagliptin * Obstructive sleep apnea start home CPAP * Hyperlipidemia continue statin Brief hospital course Ms. Emery is a 54 year old F morbidly obese with a known history of diabetes/ hypertension who presents to ER with increasing weight gain/shortness of breath over the last few days. Patient has been taking 6-8 ibuprofen for degenerative joint disease. She also endorses a lack of appetite and lack of sleep. Her dyspnea is progressed from maximum exertion to dyspnea at rest. Dyspnea exacerbated by laying down. She denies [id number] medications or sick contacts. She presents to the ER with above symptoms. Notably patient has a history of CHF and follows up with Dr. rubi [place] cardiology. She has an echocardiogram done middle of 2018 and was following up with [place] Dr. Osborn. Initial work-up was consistent with CHF exacerbation/basilar pneumonia. Patient was started on antibiotic coverage subsequently hospitalist service was consulted At the time of evaluation patient is accompanied with her son. She was able to answer most the question and endorsed to history as above. She denies associated fever, diarrhea, abdominal pain, headache, photophobia. She denies productive sputum. 11/02-patient doing well. No overnight events. No concerns per staff. No fever chills nausea vomiting. Diuresing well. On room air. No telemetry events. T- max 100.3. Continue PT OT/nutrition support 11/03-patient feels remarkably better. Improved work of breathing and now sats on room air. Feels at baseline. Requesting discharge. Ambulating. Tolerating diet. No telemetry events. Down 7 pounds net fluid balance with aggressive diuresis. Continue Levaquin for additional 5 days. Discharge instruction as below Discharge diagnosis: . - Time Spent with Patient Total time spent providing and/or coordinating discharge services: Greater than 30 minutes Medical - DS: Exam - Constitutional Vitals: Vital Signs Temp Pulse Resp BP Pulse Ox 11/03/19 07:40 66 16 11/03/19 04:01 97.6 F 18 121/77 100 11/03/19 03:01 125/59 95 11/03/19 02:01 124/73 93 11/03/19 01:01 105/61 95 11/03/19 00:01 97.7 F 20 116/65 93 11/02/19 23:01 101/51 91 11/02/19 22:01 113/50 92 11/02/19 21:02 124/53 100 11/02/19 20:41 98.0 F 18 126/53 98 11/02/19 19:01 114/51 100 11/02/19 19:00 92 H 20 11/02/19 18:14 136/67 96 11/02/19 16:18 100 11/02/19 16:11 97 F 20 118/49 97 11/02/19 14:57 73 16 11/02/19 14:12 99 11/02/19 14:00 20 100 11/02/19 13:22 120/50 11/02/19 11:41 98.1 F 17 151/88 97 11/02/19 11:25 76 16 11/02/19 10:17 16 150/79 95 Intake and Output 11/02/19 11/03/19 11/03/19 21:59 05:59 13:59 Intake Total 240 240 Output Total 1350 800 Balance -1110 -560 Intake: Oral 240 240 Output: Void Amount 1350 800 Other: Meal Dinner Percent of Meal Consumed 100% Feeding Ability Independent Urine Appearance Clear Urine Color Pale Urine Odor Strong # Bowel Movements 1 Weight 430 lb 9.6 oz Medical - DS: Data Labs on day of discharge: Labs from last 24 hours 11/03/19 11/03/19 05:05 05:05 WBC 9.7 RBC 3.84 Hgb 10.8 L Hct 33.6 L MCV 87.5 MCH 28.1 MCHC 32.1 RDW 15.0 H Plt Count 238 MPV 10.2 Total Counted 100 Seg Neutrophils % 69 Band Neutrophils % 1 Lymphocytes % 20 Monocytes % (Manual) 9 Eosinophils % (Manual) 1 Platelet Estimate Normal RBC Morphology Abnorm A Polychromasia Few A Sodium 138 Potassium 3.9 Chloride 97 Carbon Dioxide 29 Anion Gap 12.0 BUN 15 Creatinine 0.9 GFR Calculation 73 Glucose 116 H Uric Acid 5.5 Calcium 9.3 Phosphorus 4.3 Magnesium 2.2 Total Bilirubin 0.7 Direct Bilirubin < 0.2 GGT 18 AST 15 ALT 12 Alkaline Phosphatase 62 Lactate Dehydrogenase 195 Total Protein 6.7 Albumin 3.5 Globulin 3.2 Albumin/Globulin Ratio 1.1 Triglycerides 70 Preliminary micro results at discharge 11/01/19 03:24 Blood Culture - Preliminary Blood 11/01/19 03:32 Blood Culture - Preliminary Blood Medical - DS: A/P - Patient/Caregiver Discharge Instructions Activity: increase activity as tolerated Diet: Consistent Carbohydrate Additional Instructions: Follow-up PCP in 5 days Follow-up with cardiology Dr. Mejia in 1 week I recommend primary care physician to check CBC BMP UA as a posthospital follow- up in 1 week. Antibiotics for additional 5 days Continue aggressive bowel regimen to prevent constipation Continue fall precautions Daily weights measurements and take additional 40 mg Lasix for 3 days if weight gain over 4 pounds over baseline or worsening SOB and call primary care physician if inadequate response to Lasix All meals on chair sitting upright at 90 degrees to prevent aspiration Return to ER if worsening fever chills shortness of breath, diarrhea, bleeding Review risk and side effect profile of medications including antibiotics. Side effect may include mild to severe reaction including rash, diarrhea, cdiff and even which can be prevented by close follow-up with PCP and monitoring for side effects Continue consistent carbohydrate diet and activity as advised Discussed importance of medication adherence Please review medication list with patient prior to discharge Please schedule follow-up with PCP/Providers prior to discharge and provide printouts Prescriptions: Levofloxacin [Levaquin] 750 mg PO DAILY #5 tab Transmission Status: Pending to [facility] - Follow up Plan Follow up with: Iza Jacobs ARNP [Primary Care Provider] - 11/10/19 4:00 pm (Please arrive 15 minutes early) Logan Mejia [Physician] - 12/08/19 9:00 am (Dr. Mejia office will contact you to schedule this appointment sooner.) Disposition: Home, Self-Care Care Plan Goals: This discharge packet is provided to you to help keep you informed about your care. We want to ensure you get everything you need when you go home. You will also be receiving a call from us in a few days to follow up with you and see how you are doing since your discharge. This gives us a chance to listen to any concerns you maybe experiencing since you were discharged or any additional needs you may have, as well as providing us feedback on your care experience. We strive to always provide excellent care and thank you for your feedback and for choosing [facility]. Prognosis: Good Rehab Potential: Fair I certify that the patient requires SNF services: No Overall status at discharge: patient is progressing back to baseline Medical - DS: Qual - VTE Deep Vein Thrombosis/Pulmonary Embolism Present on Admission: No
[2019-11-03] MEDS: LEVOFLOXACIN 750 MG/150 ML BAG IV SCH (10:08)
== END 2019-11-03 11:53 | disposition home or self-care (01) | DRG 291 ==
LOC: ED 02:33 → ICU 13:50
PROVIDERS: ADMIT Internal Medicine; ATTEND Internal Medicine

== ENCOUNTER 2024-02-07 20:00 | Inpatient (IN) ==
[2024-02-07] MEDS: DILTIAZEM 25 MG/5 ML VIAL IV ONE ×2 (20:30→21:21)
[2024-02-07 20:59] LABS: Basophils # (Auto) 0.02 K/mcL (0.00-0.30); Basophils % (Auto) 0.1 % (0.0-2.0); Eosinophils # (Auto) 0.04 K/mcL (0.00-0.70); Eosinophils % (Auto) 0.2 % (0.0-7.0); Hematocrit 43.7 % (34.1-44.9); Hemoglobin 14.1 g/dL (11.2-15.7); Lymphocytes # (Auto) 2.44 K/mcL (1.50-4.80); Lymphocytes % (Auto) 10.3 % (15.5-49.0); Mean Corpuscular HGB Conc 32.3 g/dL (31.0-36.0); Mean Platelet Volume 10.4 fL (8.8-12.5); Monocytes # (Auto) 1.58 K/mcL (0.10-0.90); Monocytes % (Auto) 6.7 % (1.0-12.0); Neutrophils % (Auto) 82.2 % (38.0-78.0); Platelet Count 287 K/mcL (140-440); RBC 4.91 M/mcL (3.59-5.38); Red Cell Distribution Width 15.7 % (11.5-14.5); WBC 23.7 K/mcL (4.5-11.0)
[2024-02-07 21:19] LABS: ALT/SGPT 98 U/L (<40); AST/SGOT 41 U/L (<32); Albumin 4.1 gm/dL (3.2-5.2); Albumin/Globulin Ratio 1.2 (1.0-2.3); Alkaline Phosphatase 70 U/L (39-117); Bilirubin,Total 0.8 mg/dL (0.1-1.0); Blood Urea Nitrogen 29 mg/dL (6-20); Carbon Dioxide 22 mmol/L (22-30); Chloride 100 mmol/L (96-108); Globulin 3.3 gm/dL (2.2-3.7); Glomerular Filtration Rate 56; Glucose 124 mg/dL (70-105)
[2024-02-07 21:39] LABS: Partial Thromboplastin Time 26.4 sec (20.0-37.0); Prothrombin Time 13.7 sec (11.9-14.5)
[2024-02-07] MEDS: FUROSEMIDE 100 MG/10 ML VIAL IV ONE (21:48)
[2024-02-07] MEDS: cefTRIAXone 1 GM VIAL IV ONE (22:15)
[2024-02-07] MEDS: DILTIAZEM 125 MG in DEXTROSE 5% IN WATER 100 ML IV SCH (22:36)
[2024-02-07 23:39] LABS: Appearance,Urine Clear (Clear); Bilirubin,Urine Negative (Negative); Color,Urine Yellow; Culture Indicated,Urine No; Glucose,Urine (UA) Negative (Negative); Ketones,Urine Negative (Negative); Leukocyte Esterase,Urine Negative /uL (Negative); Nitrate,Urine Negative (Negative); PH,Urine 5.5 (5.0-9.0); Protein,Urine Negative (Negative); Urine Blood Negative ery/mcL (Negative); Urobilinogen,Urine Normal
[2024-02-08] MEDS ORDERED: DEXTROSE 50% 50 ML VIAL IV PRN (00:36)
[2024-02-08] MEDS ORDERED: DEXTROSE 31 GM ORAL.SUSP PO PRN (00:36)
[2024-02-08] MEDS ORDERED: guaiFENesin/DEXTROMETHORPHAN 5ML UD CUP PO PRN (00:36)
[2024-02-08] MEDS ORDERED: ONDANSETRON 4 MG/2 ML VIAL IV PRN (00:36)
[2024-02-08] MEDS ORDERED: PIPERACILLIN SODIUM/TAZOBACTAM 3.375 GM in DEXTROSE 5% IN WATER 50 ML IV SCH (00:36)
[2024-02-08] MEDS ORDERED: PROMETHAZINE 25 MG/ML VIAL IV PRN (00:36)
[2024-02-08] MEDS ORDERED: IPRATROPIUM/ALBUTEROL 3 ML AMPUL.NEB NEB PRN (00:36)
[2024-02-08 02:07] LABS: Hemoglobin A1C 6.1 % Hgb (4.0-6.0)
[2024-02-08] MEDS: 0.9 % SODIUM CHLORIDE 10 ML SYRINGE IV SCH (04:00)
[2024-02-08] MEDS: VANCOMYCIN 1,000 MG in 0.9 % SODIUM CHLORIDE 250 ML IV ONE ×2 (04:15→08:38)
[2024-02-08] MEDS: VANCOMYCIN PER PHARMACY IV ONE (04:15)
[2024-02-08 06:05] LABS: Basophils # (Auto) 0.04 K/mcL (0.00-0.30); Basophils % (Auto) 0.2 % (0.0-2.0); Eosinophils # (Auto) 0.07 K/mcL (0.00-0.70); Eosinophils % (Auto) 0.4 % (0.0-7.0); Hematocrit 39.5 % (34.1-44.9); Hemoglobin 12.7 g/dL (11.2-15.7); Lymphocytes # (Auto) 2.19 K/mcL (1.50-4.80); Lymphocytes % (Auto) 12.1 % (15.5-49.0); Mean Corpuscular HGB Conc 32.2 g/dL (31.0-36.0); Mean Platelet Volume 10.4 fL (8.8-12.5); Monocytes # (Auto) 0.98 K/mcL (0.10-0.90); Monocytes % (Auto) 5.4 % (1.0-12.0); Neutrophils % (Auto) 81.5 % (38.0-78.0); Platelet Count 231 K/mcL (140-440); RBC 4.34 M/mcL (3.59-5.38); Red Cell Distribution Width 15.6 % (11.5-14.5)
[2024-02-08 06:11] LABS: Phosphorous 3.1 mg/dL (2.5-4.5)
[2024-02-08 06:26] LABS: ALT/SGPT 72 U/L (<40); AST/SGOT 24 U/L (<32); Albumin 3.6 gm/dL (3.2-5.2); Albumin/Globulin Ratio 1.2 (1.0-2.3); Alkaline Phosphatase 59 U/L (39-117); Blood Urea Nitrogen 26 mg/dL (6-20); Calcium 8.3 mg/dL (8.6-10.4); Carbon Dioxide 26 mmol/L (22-30); Chloride 104 mmol/L (96-108); Globulin 2.9 gm/dL (2.2-3.7); Glomerular Filtration Rate 71; Glucose 133 mg/dL (70-105)
[2024-02-08] MEDS: INSULIN LISPRO 1 UNIT/0.01 ML UNIT SQ SCH (06:58)
[2024-02-08] MEDS ORDERED: PANTOPRAZOLE 40 MG TABLET PO SCH (07:30)
[2024-02-08] MEDS ORDERED: SENNOSIDES 1 TABLET PO PRN (07:41)
[2024-02-08] MEDS: APIXABAN 5 MG TABLET PO SCH (08:30)
[2024-02-08] MEDS: FUROSEMIDE 40 MG/4 ML VIAL IV SCH (08:31)
[2024-02-08] MEDS: DOCUSATE SODIUM 100 MG CAPSULE PO SCH (08:33)
[2024-02-08] MEDS: PIPERACILLIN SODIUM/TAZOBACTAM 3.375 GM in 0.9 % SODIUM CHLORIDE 100 ML IV SCH ×2 (10:12)
[2024-02-08] MEDS: POTASSIUM CHLORIDE 10 MEQ TABLET PO SCH (16:35)
[2024-02-08] MEDS: METOPROLOL TARTRATE 25 MG TABLET PO SCH (20:21)
[2024-02-08] MEDS: ATORVASTATIN 40 MG TABLET PO SCH (20:21)
[2024-02-08] MEDS: OMEPRAZOLE 20 MG CAPSULE PO SCH (20:22)
[2024-02-08] MEDS: ACETAMINOPHEN 325 MG TABLET PO PRN (23:35)
[2024-02-08] MEDS: MELATONIN 3 MG TABLET PO PRN (23:35)
[2024-02-09] MEDS: DILTIAZEM 125 MG/25 ML VIAL IV ONE (02:46)
[2024-02-09 06:19] LABS: Basophils # (Auto) 0.03 K/mcL (0.00-0.30); Basophils % (Auto) 0.2 % (0.0-2.0); Eosinophils # (Auto) 0.24 K/mcL (0.00-0.70); Eosinophils % (Auto) 1.4 % (0.0-7.0); Hemoglobin 13.8 g/dL (11.2-15.7); Lymphocytes # (Auto) 1.65 K/mcL (1.50-4.80); Lymphocytes % (Auto) 9.5 % (15.5-49.0); Mean Cell Volume 90.9 fL (80.0-100.0); Mean Corpuscular HGB Conc 32.1 g/dL (31.0-36.0); Mean Platelet Volume 9.9 fL (8.8-12.5); Monocytes # (Auto) 0.83 K/mcL (0.10-0.90); Monocytes % (Auto) 4.8 % (1.0-12.0); Neutrophils % (Auto) 83.8 % (38.0-78.0); Platelet Count 270 K/mcL (140-440); RBC 4.73 M/mcL (3.59-5.38); Red Cell Distribution Width 15.5 % (11.5-14.5); WBC 17.3 K/mcL (4.5-11.0)
[2024-02-09 06:32] LABS: ALT/SGPT 54 U/L (<40); AST/SGOT 18 U/L (<32); Albumin 3.8 gm/dL (3.2-5.2); Albumin/Globulin Ratio 1.2 (1.0-2.3); Alkaline Phosphatase 62 U/L (39-117); Bilirubin,Total 1.6 mg/dL (0.1-1.0); Blood Urea Nitrogen 22 mg/dL (6-20); Calcium 8.9 mg/dL (8.6-10.4); Carbon Dioxide 27 mmol/L (22-30); Chloride 100 mmol/L (96-108); Globulin 3.2 gm/dL (2.2-3.7); Glomerular Filtration Rate 71; Glucose 137 mg/dL (70-105); Phosphorous 3.2 mg/dL (2.5-4.5)
[2024-02-09] MEDS: LEVOTHYROXINE 150 MCG TABLET PO SCH (07:11)
[2024-02-09] MEDS: LOSARTAN 25 MG TABLET PO SCH (09:06)
[2024-02-09] MEDS: SPIRONOLACTONE 25 MG TABLET PO SCH (09:06)
[2024-02-09] MEDS: ASPIRIN 81 MG TAB.CHEW PO SCH (09:07)
[2024-02-10] MEDS: 0.9 % SODIUM CHLORIDE 250 ML IV SCH (02:00)
[2024-02-10 06:15] LABS: Basophils # (Auto) 0.04 K/mcL (0.00-0.30); Basophils % (Auto) 0.2 % (0.0-2.0); Eosinophils # (Auto) 0.25 K/mcL (0.00-0.70); Eosinophils % (Auto) 1.5 % (0.0-7.0); Hemoglobin 13.5 g/dL (11.2-15.7); Lymphocytes # (Auto) 1.91 K/mcL (1.50-4.80); Lymphocytes % (Auto) 11.2 % (15.5-49.0); Mean Cell Volume 90.5 fL (80.0-100.0); Mean Corpuscular HGB Conc 32.1 g/dL (31.0-36.0); Mean Platelet Volume 10.2 fL (8.8-12.5); Monocytes # (Auto) 0.88 K/mcL (0.10-0.90); Monocytes % (Auto) 5.1 % (1.0-12.0); Neutrophils % (Auto) 81.7 % (38.0-78.0); Platelet Count 286 K/mcL (140-440); RBC 4.64 M/mcL (3.59-5.38); Red Cell Distribution Width 15.5 % (11.5-14.5); WBC 17.1 K/mcL (4.5-11.0)
[2024-02-10 06:26] LABS: ALT/SGPT 37 U/L (<40); AST/SGOT 14 U/L (<32); Albumin 3.6 gm/dL (3.2-5.2); Albumin/Globulin Ratio 1.2 (1.0-2.3); Alkaline Phosphatase 59 U/L (39-117); Bilirubin,Total 1.1 mg/dL (0.1-1.0); Blood Urea Nitrogen 22 mg/dL (6-20); Carbon Dioxide 28 mmol/L (22-30); Chloride 100 mmol/L (96-108); Globulin 3.1 gm/dL (2.2-3.7); Glomerular Filtration Rate 71; Glucose 128 mg/dL (70-105)
[2024-02-10] MEDS: LOSARTAN 25 MG TABLET PO ONE (10:48)
[2024-02-10] MEDS: FUROSEMIDE 40 MG TABLET PO SCH (16:35)
[2024-02-10] MEDS: DULoxetine 30 MG CAPSULE PO ONE (16:35)
[2024-02-10] MEDS: METOPROLOL TARTRATE 50 MG TABLET PO ONE (17:32)
[2024-02-10] MEDS: ATORVASTATIN 40 MG TABLET PO SCH (20:52)
[2024-02-10] MEDS ORDERED: METOPROLOL TARTRATE 25 MG TABLET PO SCH (21:00)
[2024-02-10] MEDS: METOPROLOL TARTRATE 25 MG TABLET PO SCH (23:15)
[2024-02-11 06:44] LABS: Basophils # (Auto) 0.05 K/mcL (0.00-0.30); Basophils % (Auto) 0.3 % (0.0-2.0); Eosinophils # (Auto) 0.54 K/mcL (0.00-0.70); Eosinophils % (Auto) 3.1 % (0.0-7.0); Hematocrit 42.7 % (34.1-44.9); Hemoglobin 13.6 g/dL (11.2-15.7); Lymphocytes # (Auto) 1.91 K/mcL (1.50-4.80); Mean Cell Volume 91.4 fL (80.0-100.0); Mean Corpuscular HGB Conc 31.9 g/dL (31.0-36.0); Mean Platelet Volume 10.3 fL (8.8-12.5); Monocytes % (Auto) 5.2 % (1.0-12.0); Neutrophils % (Auto) 80.1 % (38.0-78.0); Platelet Count 292 K/mcL (140-440); RBC 4.67 M/mcL (3.59-5.38); Red Cell Distribution Width 15.4 % (11.5-14.5); WBC 17.4 K/mcL (4.5-11.0)
[2024-02-11 07:24] LABS: ALT/SGPT 31 U/L (<40); AST/SGOT 17 U/L (<32); Albumin 3.6 gm/dL (3.2-5.2); Albumin/Globulin Ratio 1.2 (1.0-2.3); Alkaline Phosphatase 59 U/L (39-117); Blood Urea Nitrogen 23 mg/dL (6-20); Calcium 8.9 mg/dL (8.6-10.4); Carbon Dioxide 24 mmol/L (22-30); Chloride 102 mmol/L (96-108); Globulin 3.1 gm/dL (2.2-3.7); Glomerular Filtration Rate 71; Glucose 121 mg/dL (70-105); Phosphorous 3.4 mg/dL (2.5-4.5)
[2024-02-11] MEDS: LEVOTHYROXINE 150 MCG TABLET PO SCH (07:55)
[2024-02-11] MEDS: LOSARTAN 50 MG TABLET PO SCH (09:02)
[2024-02-11] MEDS: DULoxetine 30 MG CAPSULE PO SCH (09:02)
[2024-02-11] MEDS: SPIRONOLACTONE 25 MG TABLET PO SCH (09:02)
[2024-02-11] MEDS: LORazepam 1 MG TABLET PO PRN (12:24)
[2024-02-11] MEDS: METOPROLOL TARTRATE 5 MG/5 ML VIAL IV PRN (17:26)
[2024-02-11] MEDS: AMIODARONE 150 MG in DEXTROSE 5% IN WATER 50 ML IV SCH (21:34)
[2024-02-11] MEDS: AMIODARONE 360 MG in PREMIX 1 BAG IV SCH (21:35)
[2024-02-11] MEDS: AMIODARONE 360 MG/200 ML BAG IV ONE (22:02)
[2024-02-11] MEDS: AMIODARONE 150 MG/3 ML VIAL IV ONE (22:02)
[2024-02-12] MEDS: AMIODARONE 360 MG in PREMIX 1 BAG IV SCH (03:40)
[2024-02-12] MEDS: AMIODARONE 360 MG/200 ML BAG IV ONE ×2 (04:04→18:45)
[2024-02-12 06:46] LABS: Basophils # (Auto) 0.05 K/mcL (0.00-0.30); Basophils % (Auto) 0.3 % (0.0-2.0); Eosinophils # (Auto) 0.28 K/mcL (0.00-0.70); Eosinophils % (Auto) 1.6 % (0.0-7.0); Hematocrit 43.9 % (34.1-44.9); Hemoglobin 14.1 g/dL (11.2-15.7); Lymphocytes # (Auto) 2.37 K/mcL (1.50-4.80); Lymphocytes % (Auto) 13.9 % (15.5-49.0); Mean Cell Volume 90.1 fL (80.0-100.0); Mean Corpuscular HGB Conc 32.1 g/dL (31.0-36.0); Mean Platelet Volume 10.2 fL (8.8-12.5); Monocytes % (Auto) 5.3 % (1.0-12.0); Neutrophils % (Auto) 78.5 % (38.0-78.0); Platelet Count 284 K/mcL (140-440); RBC 4.87 M/mcL (3.59-5.38); Red Cell Distribution Width 15.6 % (11.5-14.5); WBC 17.1 K/mcL (4.5-11.0)
[2024-02-12 08:10] LABS: ALT/SGPT 34 U/L (<40); AST/SGOT 19 U/L (<32); Albumin 3.6 gm/dL (3.2-5.2); Albumin/Globulin Ratio 1.2 (1.0-2.3); Alkaline Phosphatase 61 U/L (39-117); Bilirubin,Direct < 0.2 mg/dL (0-0.3); Bilirubin,Total 0.5 mg/dL (0.1-1.0); Blood Urea Nitrogen 24 mg/dL (6-20); Carbon Dioxide 26 mmol/L (22-30); Chloride 102 mmol/L (96-108); Glomerular Filtration Rate 71; Glucose 118 mg/dL (70-105); Lactate Dehydrogenase 139 U/L (135-225); Phosphorous 3.6 mg/dL (2.5-4.5); Triglycerides 71 mg/dL (<150); Uric Acid 4.6 mg/dL (2.5-8.0)
[2024-02-12 08:42] LABS: C-Reactive Protein 0.58 mg/dL (0.03-0.80)
[2024-02-12] MEDS: ERGOCALCIFEROL (VITAMIN D2) 50,000 UNIT CAPSULE PO SCH (09:16)
[2024-02-12] MEDS: METOPROLOL TARTRATE 50 MG TABLET PO SCH (09:16)
[2024-02-12] MEDS: DIGOXIN 500 MCG/2 ML AMPUL IV ONE (16:56)
[2024-02-12] MEDS: DIGOXIN 500 MCG/2 ML AMPUL IV SCH (21:35)
[2024-02-13 05:53] LABS: Hematocrit 46.3 % (34.1-44.9); Hemoglobin 14.6 g/dL (11.2-15.7); Mean Cell Volume 91.7 fL (80.0-100.0); Mean Corpuscular HGB Conc 31.5 g/dL (31.0-36.0); Platelet Count 286 K/mcL (140-440); RBC 5.05 M/mcL (3.59-5.38); Red Cell Distribution Width 15.5 % (11.5-14.5)
[2024-02-13 06:15] LABS: ALT/SGPT 38 U/L (<40); AST/SGOT 22 U/L (<32); Albumin 3.8 gm/dL (3.2-5.2); Albumin/Globulin Ratio 1.2 (1.0-2.3); Alkaline Phosphatase 64 U/L (39-117); Bilirubin,Direct 0.2 mg/dL (<0.3); Bilirubin,Total 0.6 mg/dL (0.1-1.0); Blood Urea Nitrogen 29 mg/dL (6-20); Calcium 9.2 mg/dL (8.6-10.4); Carbon Dioxide 29 mmol/L (22-30); Chloride 98 mmol/L (96-108); Globulin 3.2 gm/dL (2.2-3.7); Glomerular Filtration Rate 56; Glucose 110 mg/dL (70-105); Lactate Dehydrogenase 157 U/L (135-225); Phosphorous 3.9 mg/dL (2.5-4.5); Triglycerides 62 mg/dL (<150); Uric Acid 4.8 mg/dL (2.5-8.0)
[2024-02-13 06:33] LABS: Lymphocytes % 5 % (15-49); Monocytes % (Manual) 4 % (1-12); Platelet Estimate NORMAL (Normal); RBC Morphology NORMAL (Normal); Reactive Lymphocytes 2 % (0-2); Segmented Neutrophils % 89 % (38-78)
[2024-02-13] MEDS: AMIODARONE HCL 200 MG TABLET PO SCH (08:19)
[2024-02-13] MEDS: cefTRIAXone 2 GM in DEXTROSE 5% IN WATER 50 ML IV SCH (08:20)
[2024-02-13] MEDS: METOLAZONE 2.5 MG TABLET PO ONE (08:34)
== END 2024-02-13 11:05 | disposition home or self-care (01) | DRG 308 ==
LOC: ED 20:00 → ICU 02-08 00:30
PROVIDERS: ADMIT Internal Medicine; ATTEND Internal Medicine